=== PATIENT | female | born 1960 | race Caucasian/White ===

== ENCOUNTER 2018-05-19 08:51 | Day surgery (SDC) | payer OTHER ==
[2018-05-18 09:15] VITALS: BMI 41.1
[2018-05-19] MEDS ORDERED: TETRACAINE/BENZOCAINE/BUTAMBEN 20 GM SPR TP ONE (10:45)
[2018-05-19 12:57] VITALS: BP 137/61; PULSE 93; TEMP 98.4
--- NOTE | 2018-05-22 15:46 | PATH ---
Surgical Pathology Report Patient Name: CELENA CARTER [facility]. Rec. #: [id number] /Age/Gender: 1960 (Age: 58) / F Account: [id number] Location: U-ENDOSCOPY Taken: 05/19/2018 Received: 05/19/2018 Reported: 05/22/2018 Physicians: Anna Erazo M.D. Specimen(s) Received A: BX 2ND PORTION DUODENUM AND DUODENAL BULB B: BX ANTRUM C: BX GE JUNCTION AND MID ESOPHAGUS D: RECTAL POLYP E: POLYP SIGMOID F: BX DISTAL TRANSVERSE COLON POLYP G: BX ILEOCECAL VALVE POLYPS H: BX RIGHT COLON POLYPS I: BX PROXIMAL TRANSVERSE COLON POLYPS Clinical History Epigastric pain rule out ulcer, adenoma of colon surveillance Final Diagnosis A. DUODENUM, SECOND PORTION AND DUODENAL BULB, BIOPSY: DUODENAL MUCOSA WITHOUT SIGNIFICANT PATHOLOGIC FINDINGS. B. STOMACH, ANTRUM, BIOPSY: GASTRIC ANTRAL MUCOSA WITH MODERATE TO SEVERE CHRONIC ACTIVE GASTRITIS. IMMUNOHISTOCHEMICAL STAIN FOR H. PYLORI IS POSITIVE (MANY). C. GE JUNCTION AND MID ESOPHAGUS, BIOPSY: SQUAMOUS MUCOSA WITH MILD BASAL CELL HYPERPLASIA AND FOCAL HEMORRHAGE CONSISTENT WITH MILD REFLUX ESOPHAGITIS. NO COLUMNAR MUCOSA, INTESTINAL METAPLASIA, OR DYSPLASIA IDENTIFIED. D. RECTUM, POLYP, POLYPECTOMY: HYPERPLASTIC POLYP. E. SIGMOID COLON, POLYP, POLYPECTOMY: HYPERPLASTIC POLYP. F. DISTAL TRANSVERSE COLON, POLYP, POLYPECTOMY: HYPERPLASTIC POLYP. G. ILEOCECAL VALVE, POLYPS, POLYPECTOMY: TUBULAR ADENOMA(S). HYPERPLASTIC POLYP(S). H. COLON, RIGHT, POLYPS, POLYPECTOMY: HYPERPLASTIC POLYP(S). I. PROXIMAL TRANSVERSE COLON, POLYPS, POLYPECTOMY: TUBULAR ADENOMA. HYPERPLASTIC POLYP(S). Electronically Signed Laly Cabrales M.D. Gross Description A. Received in formalin, labeled "second portion duodenum and bulb" are multiple gusman, irregular portions of soft tissue measuring 0.5 cm. in greatest dimension. The specimens are submitted in toto in one cassette. B. Received in formalin, labeled "antrum" are multiple, irregular portions of soft tissue measuring 0.4 cm. in greatest dimension. The specimens are submitted in toto in one cassette. C. Received in formalin, labeled "GE junction and mid esophagus" are multiple gusman, irregular portions of soft tissue measuring 0.3 cm. in greatest dimension. The specimens are submitted in toto in one cassette. D. Received in formalin, labeled "rectal polyp" is a gusman, irregular portion of soft tissue measuring 0.3 cm. in greatest dimension. The specimens are submitted in toto in one cassette. E. Received in formalin, labeled "sigmoid polyp" are 2 gusman, irregular portion of soft tissue measuring 0.3 cm. in greatest dimension. The specimens are submitted in toto in one cassette. F. Received in formalin, labeled "distal transverse colon polyps" are multiple gusman, irregular portions of soft tissue measuring 0.8 cm. in greatest dimension. The specimens are submitted in toto in one cassette. G. Received in formalin, labeled "ileocecal valve polyps" are multiple gusman, irregular portions of soft tissue measuring 0.8 cm. in greatest dimension. The specimens are submitted in toto in one cassette. H. Received in formalin, labeled "right colon polyps" are multiple gusman, irregular portions of soft tissue measuring 1.0 cm. in greatest dimension. The specimens are submitted in toto in one cassette. I. Received in formalin, labeled "proximal transverse colon polyps" are multiple gusman, irregular portions of soft tissue measuring 0.4 cm. in greatest dimension. The specimens are submitted in toto in one cassette. KEON05/19/2018 patrick05/19/2018
== END 2018-05-19 12:57 | disposition home or self-care (01) ==
LOC: JASU-ENDO 08:51
PROVIDERS: ATTEND Internal Medicine Gastroenterology
PROC: 0DBC8ZX Excision of Ileocecal Valve, Via Natural or Artificial Opening Endoscopic, Diagnostic (ICD-10-PCS; 2018-05-19)
PROC: 0DBP8ZX Excision of Rectum, Via Natural or Artificial Opening Endoscopic, Diagnostic (ICD-10-PCS; 2018-05-19)
PROC: 0DBL8ZX Excision of Transverse Colon, Via Natural or Artificial Opening Endoscopic, Diagnostic (ICD-10-PCS; 2018-05-19)
PROC: 0DBN8ZX Excision of Sigmoid Colon, Via Natural or Artificial Opening Endoscopic, Diagnostic (ICD-10-PCS; 2018-05-19)
PROC: 0DB58ZX Excision of Esophagus, Via Natural or Artificial Opening Endoscopic, Diagnostic (ICD-10-PCS; 2018-05-19)
PROC: 0DB68ZX Excision of Stomach, Via Natural or Artificial Opening Endoscopic, Diagnostic (ICD-10-PCS; 2018-05-19)
PROC: 0DBK8ZX Excision of Ascending Colon, Via Natural or Artificial Opening Endoscopic, Diagnostic (ICD-10-PCS; principal; 2018-05-19 10:00)
DX: Z12.11 Encounter for screening for malignant neoplasm of colon (principal); Z86.010 Personal history of colon polyps; K63.5 Polyp of colon; K62.1 Rectal polyp; K21.0 Gastro-esophageal reflux disease with esophagitis; K44.9 Diaphragmatic hernia without obstruction or gangrene; K29.70 Gastritis, unspecified, without bleeding
CPT/HCPCS: 88305-TC; 88342-TC

== ENCOUNTER 2020-10-31 05:01 | Day surgery (SDC) | payer OTHER ==
[2020-10-29 09:55] VITALS: BMI 25.7
[2020-10-31 11:33] VITALS: TEMP 97
[2020-10-31 12:41] VITALS: BP 122/69; PULSE 90
== END 2020-10-31 13:00 | disposition home or self-care (01) ==
LOC: JASU-ENDO 05:01
PROVIDERS: ATTEND Internal Medicine Gastroenterology
PROC: 0DB98ZX Excision of Duodenum, Via Natural or Artificial Opening Endoscopic, Diagnostic (ICD-10-PCS; 2020-10-31)
PROC: 0DB78ZX Excision of Stomach, Pylorus, Via Natural or Artificial Opening Endoscopic, Diagnostic (ICD-10-PCS; 2020-10-31)
PROC: 0DBN8ZX Excision of Sigmoid Colon, Via Natural or Artificial Opening Endoscopic, Diagnostic (ICD-10-PCS; principal; 2020-10-31 11:00)
DX: Z12.11 Encounter for screening for malignant neoplasm of colon (principal); D12.5 Benign neoplasm of sigmoid colon; K64.8 Other hemorrhoids; K21.9 Gastro-esophageal reflux disease without esophagitis; K44.9 Diaphragmatic hernia without obstruction or gangrene; K31.7 Polyp of stomach and duodenum; Z86.010 Personal history of colon polyps; R12 Heartburn
CPT/HCPCS: 88305-TC; 88342-TC

== ENCOUNTER 2021-06-23 10:53 | Emergency (ER) | payer OTHER ==
[2021-06-23 10:59] VITALS: BP 164/89; PULSE 109; TEMP 98.1; BMI 25.0
[2021-06-23 14:08] LABS: EPI CELLS 3 /uL (0-25.1); HYALINE CASTS 0 /uL (0-3.1); PH,URINE 6.5 (5.0-8.0); URINE APPEARANCE CLEAR; URINE BACTERIA 0 /uL (0-1359); URINE BILIRUBIN NEGATIVE (NEGATIVE); URINE COLOR YELLOW; URINE GLUCOSE (UA) NEGATIVE (NEGATIVE); URINE KETONE NEGATIVE (NEGATIVE); URINE LEUK ESTERASE NEGATIVE (NEGATIVE); URINE NITRITE NEGATIVE (NEGATIVE); URINE PROTEIN NEGATIVE (NEGATIVE); URINE RBC 19 /uL (0-23.9); URINE UROBILINOGEN 0.2 mg/dL (0.2-1.0); URINE WBC 3 /uL (0-25.8)
== END 2021-06-23 14:35 | disposition home or self-care (01) ==
LOC: JERFT 10:53
DX: R07.81 Pleurodynia (principal)
CPT/HCPCS: 71101-TC-LT-FY; 74018-TC-FY; 81003; 87086; 99284-25